=== PATIENT | male | born 1940 | race Caucasian/White ===

== ENCOUNTER → 2020-07-09 11:37 | Outpatient (BNVA) | payer MEDICARE, SELFPAY | PROVIDERS: Family Provider Family Medicine; PCP Family Medicine; Visit Provider Family Medicine | DX: E78.00 Pure hypercholesterolemia, unspecified (principal); I10 Essential (primary) hypertension; M54.5 Low back pain; G89.29 Other chronic pain; K21.9 Gastro-esophageal reflux disease without esophagitis; Z68.30 Body mass index [BMI] 30.0-30.9, adult; F17.211 Nicotine dependence, cigarettes, in remission | CPT/HCPCS: 80053; 80061; 85025 ==

== ENCOUNTER 2021-04-09 21:25 | Observation (INO) | payer MEDICARE, MEDICAID, SELFPAY ==
[2021-04-09 21:41] VITALS: BP 130/88; PULSE 72; RESP 32; TEMP 37.4; O2SAT 93; BMI 28.8
--- NOTE | 2021-04-09 21:49 | XRR_ITS ---
PROCEDURE INFORMATION: Exam: XR Chest Exam date and time: 04/09/2021 9:52 PM Age: 80 years old Clinical indication: Shortness of breath; Additional info: Reduced breath sounds TECHNIQUE: Imaging protocol: XR of the chest. Views: 1 view. COMPARISON: No relevant prior studies available. FINDINGS: Lungs: Bibasilar atelectasis versus minimal infiltrate. Pleural spaces: Unremarkable. No pleural effusion. No pneumothorax. Heart/Mediastinum: Cardiomegaly. Bones/joints: Unremarkable. XR/XR chest 1V portable [id number] IMPRESSION: 1. Cardiomegaly. 2. Bibasilar atelectasis versus minimal infiltrate.
--- NOTE | 2021-04-09 21:51 | ECG_ITS ---
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1940 Requested By: Narayan Miner Order Number: [id number] Diaz MD: JULITO HARRIS Measurements Intervals [place] Rate: 70 P: 9 AK: 171 QRS: -46 QRSD: 104 T: 31 QT: 387 QTc: 418 Interpretive Statements SINUS RHYTHM WITH OCCASIONAL ECTOPIC PREMATURE COMPLEXES PATTERN CONSISTENT WITH PULMONARY DISEASE LEFT ANTERIOR FASCICULAR BLOCK [QRS AXIS <= -45, QR IN I, RS IN II] No previous ECG available for comparison Electronically Signed On 04-11-2021 20:22:55 CDT by JULITO HARRIS [id number]
--- NOTE | 2021-04-09 21:52 | W.ED.AMS ---
HPI - Altered Mental Status General: Chief Complaint: Altered Mental Status Stated Complaint: CONFUSED Time Seen by Provider: 04/09/21 21:45 History of Present Illness: HPI narrative: The patient is an 80-year-old male with past medical history dementia and hypertension who comes to the ER brought by family who said he is confused. He is alert to himself and knows what day of the week it is however he does not recall who the president is. He was also recently diagnosed with tremors per the nurse. The patient denies any complaints in the ED but is satting 92% on room air. MD complaint: confusion Severity: moderate Consistency of symptoms: Waxing and Waning Associated symptoms: Deny depression Review of Systems General: Reports: 10 or more systems reviewed and unremarkable except in HPI and below Const: Denies: fatigue Eyes: Denies: change in vision, blurry vision or eye redness ENMT: Denies: throat pain, swelling of lips/tongue, ear or mastoid pain or nasal congestion Card: Denies: chest pain, palpitations, irregular heart rhythm, edema, dyspnea on exertion or orthopnea Resp: Denies: dyspnea, productive cough or non-productive cough GI: Denies: abdominal pain, diarrhea or GI cramping : Denies: flank pain, urinary frequency or urinary urgency Musc: Denies: neck pain, back pain, extremity pain, joint pain, joint redness, limited range of motion or muscle weakness Skin/Breast: Denies: rash, pruritus, erythema, skin pain or skin tenderness Neuro: Denies: headache(s), numbness in extremities, weakness in extremities, sensory changes, difficulty walking, dizziness, confusion or Slurred speech present Psych: Denies: anxiety or depression Endo: Denies: polyuria All/Imm: Denies: urticaria, throat swelling or tongue swelling PFSH ED PFSH: Medical History (Updated 04/10/21 @ 00:51 by Narayan Miner MD) Anxiety Arthritis Back pain stable. Cataract Dementia GERD (gastroesophageal reflux disease) History of hemorrhoids History of kidney stones Hypercholesteremia Hypertension Surgical History (Updated 04/10/21 @ 00:17 by Rei Santoyo MD) History of back surgery History of cholecystectomy History of knee surgery Family History (Updated 04/10/21 @ 00:17 by Rei Santoyo MD) Father Cancer Pancreatic cancer Social History (Updated 04/10/21 @ 00:17 by Rei Santoyo MD) Smoking and tobacco status: former smoker Alcohol intake: never Substance/Drug Use: never Housing: House Physical Exam Const: COMMON NORMALS: no acute distress, average body habitus, patient oriented x3, no limitations, healthy appearing, alert and well nourished GENERAL APPEARANCE: cooperative, comfortable, well kempt and well developed ORIENTATION/CONSCIOUSNESS: Yes awake, Yes oriented to person, Yes oriented to place and Yes oriented to time HENMT: COMMON NORMALS: normocephalic, external ears normal and Normal external nose present HEAD & SCALP: normal to inspection and normocephalic NOSE: Normal external nose present EXTERNAL EAR: Yes external ears normal MOUTH: Normal oral and palatal mucosa present THROAT: posterior oropharynx normal Eye: COMMON NORMALS: Equal, round and reactive pupils present and EOMs intact bilaterally GENERAL EYE: appearance normal, both eyes and all related structures PUPIL: Yes Equal, round and reactive pupils present Neck/C-Spine: COMMON NORMALS: full ROM, no lymphadenopathy, no meningeal signs and no JVD GENERAL: Yes normal visual inspection Lymph: LYMPHATIC: no lymphadenopathy noted Chest: COMMONS NORMALS: normal inspection of the chest and normal palpation of entire chest wall Resp: COMMON NORMALS: normal respiratory effort, No retractions, No use of accessory muscles, clear to auscultation bilaterally and percussion normal EFFORT & INSPECTION: Yes able to speak in complete sentences AUSCULTATION: clear to auscultation bilaterally PERCUSSION: percussion normal Cardio: COMMON NORMALS: no JVD, regular rate, regular rhythm, S1 normal heart sound present, S2 normal heart sound present and Peripheral pulses 2+ throughout RATE: regular rate RHYTHM: regular rhythm HEART SOUNDS: S1 normal heart sound present and S2 normal heart sound present PERIPHERAL PULSES: Peripheral pulses 2+ throughout GI: COMMON NORMALS: Normal to inspection, nondistended, normoactive bowel sounds present, Soft to palpation, non-tender and no masses INSPECTION: Yes normal to inspection PALPATION: Yes Soft to palpation : COMMON NORMALS: Yes no CVA tenderness BLADDER/KIDNEY EXAM: Yes no CVA tenderness Back/Pelvis: COMMON NORMALS: no CVA tenderness, thoracic and lumbar spine normal to inspection, no thoracic nor lumbar tenderness and thoraco-lumbar ROM normal Extremity: COMMON NORMALS: normal to inspection, full ROM, capillary refill normal, no joint enlargement and no pedal edema GENERAL: Yes normal exam except as noted Neuro: COMMON NORMALS: patient oriented x3, CN's II-XII intact bilaterally, moves all extremities, no focal motor deficits, no sensory deficits noted and gait normal SENSORIUM/ORIENTATION: Yes alert, Yes oriented to person, Yes oriented to place and Yes oriented to time MENINGEAL SIGNS: Yes no meningeal signs Psych: COMMON NORMALS: mental status grossly normal, Normal thought process present, cooperative, normal affect and speech normal APPEARANCE: Yes well kempt ATTITUDE: Yes calm SPEECH: Yes normal speech THOUGHT PROCESS: Normal thought process present Skin: COMMON NORMALS: no rashes or lesions noted GENERAL SKIN EXAM: no rashes or lesions noted Course Vital Signs: Vital signs: Vital Signs Temperature 99.4 F 04/09/21 21:41 Pulse Rate 69 04/09/21 23:00 Respiratory Rate 30 H 04/09/21 23:00 Blood Pressure 120/75 04/09/21 23:00 Pulse Oximetry 94 04/09/21 23:00 MDM - Altered Mental Status MDM Narrative: Medical decision making narrative: Patient is an 80-year-old male with dementia who comes to the ER brought by his daughter who says he is much more confused than usual. The patient knows his name, where he is, and his birthday. He does not know who the president is. He is answering most questions inappropriately. He has a slightly elevated white count 11.5. Slightly elevated temperature. Increased respiratory rate as well as reduced breath sounds. Chest CT also shows likely pneumonia. He was started on azithromycin and admitted to Dr. Santoyo. Lab Data: Labs: Lab Results 04/09/21 04/09/21 04/09/21 Range/Units 21:47 21:47 21:47 WBC 11.5 H (4.0-10.0) 10^3/ uL RBC 4.53 (4.1-5.3) 10^6/u L Hgb 13.4 (11.7-16.6) g/dL Hct 41.2 L (42.0-52.0) % MCV 90.9 (80-94) fL MCH 29.6 (28.0-34.0) pg MCHC 32.5 (30.0-36.0) g/dL RDW 13.4 (12.1-15.1) % Plt Count 378 (130-400) 10^3/c mm MPV 9.1 (7.4-10.4) fL Neut % (Auto) 67.7 % Lymph % (Auto) 18.6 % [place] % (Auto) 11.6 % Eos % (Auto) 1.3 % Baso % (Auto) 0.5 % Neut # (Auto) 7.77 H (1.8-7.7) 10^3/u L Lymph # (Auto) 2.1 (0.8-4.8) 10^3/u L [place] # (Auto) 1.3 H (0.2-0.9) 10^3/u L Eos # (Auto) 0.2 (0.0-0.8) 10^3/u L Baso # (Auto) 0.1 (0.0-0.1) 10^3/u L Nucleated RBC % (a uto) 0 % Nucleated RBCs # 0.0 /100WBC Sodium 135 L (136-145) mmol/L Potassium 4.4 (3.5-5.1) mmol/L Chloride 100 (98-107) mmol/L Carbon Dioxide 24 (22-29) mmol/L Anion Gap 15.4 (5-19) BUN 12 (8-23) mg/dL Creatinine 0.7 (0.7-1.2) mg/dL GFR Calculation Not Reportable Glucose 99 (65-115) mg/dL Calculated Osmolal ity 280 L (285-295) mOsm/k g Lactic Acid (0.5-2.2) mmol/L Calcium 8.8 (8.5-10.5) mg/dL Total Bilirubin 0.2 (0.15-1.2) mg/dL AST 17 (0-40) U/L ALT 21 (0-41) U/L Alkaline Phosphata se 92 (40-130) IU/L Troponin T Baselin e 44 H (0-15) ng/L Troponin T 120 Min flex (0-15) ng/L Delta Troponin T (0-10) ABS# NT-Pro-B Natriuret Pep (0-450) pg/mL Total Protein 6.7 (6.6-8.7) g/dL Albumin 4.2 (3.5-5.2) g/dL Globulin 2.5 (1.3-4.6) g/dL Procalcitonin 0.05 (0-0.5) ng/mL Urine Color (Yellow) Urine Appearance (CLEAR) Urine pH (5-7) Ur Specific Gravit y (1.005-1.030) Urine Protein (Negative) Urine Glucose (UA) (Normal) Urine Ketones (Negative) Urine Blood (Negative) Urine Nitrate (Negative) Urine Bilirubin (Negative) Urine Urobilinogen (Negative) mg/dL Ur Leukocyte Haleigh ase (Negative) Urine Opiates Scre en (Negative) ng/mL Ur Barbiturates Sc reen (Negative) ng/mL Ur Phencyclidine S crn (Negative) ng/mL Ur Amphetamines Sc reen (Negative) ng/mL U Benzodiazepines Scrn (Negative) ng/mL Urine Cocaine Scre en (Negative) ng/mL U Marijuana (THC) Screen (Negative) ng/mL 04/09/21 04/09/21 04/09/21 Range/Units 22:10 22:40 23:37 WBC (4.0-10.0) 10^3/ uL RBC (4.1-5.3) 10^6/u L Hgb (11.7-16.6) g/dL Hct (42.0-52.0) % MCV (80-94) fL MCH (28.0-34.0) pg MCHC (30.0-36.0) g/dL RDW (12.1-15.1) % Plt Count (130-400) 10^3/c mm MPV (7.4-10.4) fL Neut % (Auto) % Lymph % (Auto) % [place] % (Auto) % Eos % (Auto) % Baso % (Auto) % Neut # (Auto) (1.8-7.7) 10^3/u L Lymph # (Auto) (0.8-4.8) 10^3/u L [place] # (Auto) (0.2-0.9) 10^3/u L Eos # (Auto) (0.0-0.8) 10^3/u L Baso # (Auto) (0.0-0.1) 10^3/u L Nucleated RBC % (a uto) % Nucleated RBCs # /100WBC Sodium (136-145) mmol/L Potassium (3.5-5.1) mmol/L Chloride (98-107) mmol/L Carbon Dioxide (22-29) mmol/L Anion Gap (5-19) BUN (8-23) mg/dL Creatinine (0.7-1.2) mg/dL GFR Calculation Glucose (65-115) mg/dL Calculated Osmolal ity (285-295) mOsm/k g Lactic Acid 1.3 (0.5-2.2) mmol/L Calcium (8.5-10.5) mg/dL Total Bilirubin (0.15-1.2) mg/dL AST (0-40) U/L ALT (0-41) U/L Alkaline Phosphata se (40-130) IU/L Troponin T Baselin e (0-15) ng/L Troponin T 120 Min flex 36.31 H (0-15) ng/L Delta Troponin T -7.69 L (0-10) ABS# NT-Pro-B Natriuret Pep (0-450) pg/mL Total Protein (6.6-8.7) g/dL Albumin (3.5-5.2) g/dL Globulin (1.3-4.6) g/dL Procalcitonin (0-0.5) ng/mL Urine Color Yellow (Yellow) Urine Appearance Clear (CLEAR) Urine pH 5 (5-7) Ur Specific Gravit y 1.010 (1.005-1.030) Urine Protein Neg (Negative) Urine Glucose (UA) Norm (Normal) Urine Ketones Negative (Negative) Urine Blood Neg (Negative) Urine Nitrate Negative (Negative) Urine Bilirubin Neg (Negative) Urine Urobilinogen Norm (Negative) mg/dL Ur Leukocyte Haleigh ase Negative (Negative) Urine Opiates Scre en (Negative) ng/mL Ur Barbiturates Sc reen (Negative) ng/mL Ur Phencyclidine S crn (Negative) ng/mL Ur Amphetamines Sc reen (Negative) ng/mL U Benzodiazepines Scrn (Negative) ng/mL Urine Cocaine Scre en (Negative) ng/mL U Marijuana (THC) Screen (Negative) ng/mL 04/09/21 04/10/21 Range/Units 23:37 00:01 WBC (4.0-10.0) 10^3/ uL RBC (4.1-5.3) 10^6/u L Hgb (11.7-16.6) g/dL Hct (42.0-52.0) % MCV (80-94) fL MCH (28.0-34.0) pg MCHC (30.0-36.0) g/dL RDW (12.1-15.1) % Plt Count (130-400) 10^3/c mm MPV (7.4-10.4) fL Neut % (Auto) % Lymph % (Auto) % [place] % (Auto) % Eos % (Auto) % Baso % (Auto) % Neut # (Auto) (1.8-7.7) 10^3/u L Lymph # (Auto) (0.8-4.8) 10^3/u L [place] # (Auto) (0.2-0.9) 10^3/u L Eos # (Auto) (0.0-0.8) 10^3/u L Baso # (Auto) (0.0-0.1) 10^3/u L Nucleated RBC % (a uto) % Nucleated RBCs # /100WBC Sodium (136-145) mmol/L Potassium (3.5-5.1) mmol/L Chloride (98-107) mmol/L Carbon Dioxide (22-29) mmol/L Anion Gap (5-19) BUN (8-23) mg/dL Creatinine (0.7-1.2) mg/dL GFR Calculation Glucose (65-115) mg/dL Calculated Osmolal ity (285-295) mOsm/k g Lactic Acid (0.5-2.2) mmol/L Calcium (8.5-10.5) mg/dL Total Bilirubin (0.15-1.2) mg/dL AST (0-40) U/L ALT (0-41) U/L Alkaline Phosphata se (40-130) IU/L Troponin T Baselin e (0-15) ng/L Troponin T 120 Min flex (0-15) ng/L Delta Troponin T (0-10) ABS# NT-Pro-B Natriuret Pep 166 (0-450) pg/mL Total Protein (6.6-8.7) g/dL Albumin (3.5-5.2) g/dL Globulin (1.3-4.6) g/dL Procalcitonin (0-0.5) ng/mL Urine Color (Yellow) Urine Appearance (CLEAR) Urine pH (5-7) Ur Specific Gravit y (1.005-1.030) Urine Protein (Negative) Urine Glucose (UA) (Normal) Urine Ketones (Negative) Urine Blood (Negative) Urine Nitrate (Negative) Urine Bilirubin (Negative) Urine Urobilinogen (Negative) mg/dL Ur Leukocyte Haleigh ase (Negative) Urine Opiates Scre en Negative (Negative) ng/mL Ur Barbiturates Sc reen Negative (Negative) ng/mL Ur Phencyclidine S crn Negative (Negative) ng/mL Ur Amphetamines Sc reen Negative (Negative) ng/mL U Benzodiazepines Scrn Negative (Negative) ng/mL Urine Cocaine Scre en Negative (Negative) ng/mL U Marijuana (THC) Screen Negative (Negative) ng/mL Discharge Plan Discharge Clinical Impression: Altered mental status, Dementia, Pneumonia Condition: Stable Prescriptions: No Action hydrocodone-acetaminophen 10-325 mg tablet 1 tab PO Q6H PRNRF: 0 nitroglycerin 0.4 mg tablet, sublingual 0.4 mg SUBLINGUAL Q5M PRNRF: 0 omeprazole 20 mg capsule,delayed release(DR/EC) 20 mg PO DAILY RF: 0 polyethylene glycol Powder miscellaneous RF: 0 tolterodine 4 mg capsule,extended release 24hr 4 mg PO DAILY 90 Days Qty: 90 RF: 3 simvastatin 20 mg tablet 20 mg PO DAILY Qty: 90 RF: 1 lisinopril 20 mg tablet 20 mg PO DAILY MDD . Qty: 90 RF: 1 donepezil 10 mg tablet 10 mg PO DAILY 30 Days Qty: 90 RF: 1 Referrals: MISBAH ASHER MD [Primary Care Provider] - Coding Level of Care Code ED Store Clerk Cashier for Chg Fwd Exam Comprehensive
[2021-04-09 21:59] LABS: Basophils # 0.1 10^3/uL (0.0-0.1); Basophils % 0.5 %; Eosinophils # 0.2 10^3/uL (0.0-0.8); Eosinophils % 1.3 %; Hematocrit 41.2 % (42.0-52.0); Hemoglobin 13.4 g/dL (11.7-16.6); Lymphocytes # 2.1 10^3/uL (0.8-4.8); Lymphocytes % 18.6 %; Mean Corpuscular HGB Conc 32.5 g/dL (30.0-36.0); Mean Corpuscular Hemoglobin 29.6 pg (28.0-34.0); Mean Corpuscular Volume 90.9 fL (80-94); Mean Platelet Volume 9.1 fL (7.4-10.4); Monocytes # 1.3 10^3/uL (0.2-0.9); Monocytes % 11.6 %; Neutrophils # 7.77 10^3/uL (1.8-7.7); Neutrophils % 67.7 %; Nucleated Red Blood Cells % 0 %; Platelet Count 378 10^3/cmm (130-400); Red Blood Count 4.53 10^6/uL (4.1-5.3); Red Cell Distribution Width 13.4 % (12.1-15.1); White Blood Count 11.5 10^3/uL (4.0-10.0)
[2021-04-09 22:00] VITALS: BP 135/85; PULSE 71; RESP 32; O2SAT 95
--- NOTE | 2021-04-09 22:00 | CTR_ITS ---
PROCEDURE INFORMATION: Exam: CT Head Without Contrast Exam date and time: 04/09/2021 10:08 PM Age: 80 years old Clinical indication: Altered mental status/memory loss TECHNIQUE: Imaging protocol: Computed tomography of the head without contrast. Radiation optimization: All CT scans at this facility use at least one of these dose optimization techniques: automated exposure control; mA and/or kV adjustment per patient size (includes targeted exams where dose is matched to clinical indication); or iterative reconstruction. COMPARISON: No relevant prior studies available. RADIATION DOSE METRICS: Total DLP (mGy-cm): 735.12 FINDINGS: Brain: Moderate diffuse white matter disease likely reflecting chronic microvascular ischemic changes. Bilateral benign basal ganglia calcifications. Cerebral ventricles: No ventriculomegaly. Paranasal sinuses: Paranasal sinus opacifications. Mastoid air cells: Visualized mastoid air cells are well aerated. Bones/joints: Unremarkable. No acute fracture. Soft tissues: Unremarkable. CT/CT head wo con* [id number] IMPRESSION: Negative for intracranial hemorrhage or mass effect. Radiation Dose CTDIVOL = (mGy): DLP = 735.12 (mGy-cm)
[2021-04-09 22:18] LABS: Troponin(5th) Baseline 44 ng/L (0-15)
[2021-04-09 22:21] LABS: Alanine Aminotransferase 21 U/L (0-41); Albumin Level 4.2 g/dL (3.5-5.2); Alkaline Phosphatase 92 IU/L (40-130); Anion Gap 15.4 (5-19); Aspartate Amino Transferase 17 U/L (0-40); Blood Urea Nitrogen 12 mg/dL (8-23); Calcium 8.8 mg/dL (8.5-10.5); Carbon Dioxide 24 mmol/L (22-29); Chloride 100 mmol/L (98-107); Creatinine Clr Calc Pharmacy 76.0376; Globulin 2.5 g/dL (1.3-4.6); Glucose 99 mg/dL (65-115); Osmolality Calculated 280 mOsm/kg (285-295); Potassium 4.4 mmol/L (3.5-5.1); Sodium 135 mmol/L (136-145); Total Bilirubin 0.2 mg/dL (0.15-1.2); Total Protein 6.7 g/dL (6.6-8.7)
[2021-04-09 22:27] LABS: Procalcitonin 0.05 ng/mL (0-0.5)
[2021-04-09 22:36] LABS: Lactic Sepsis W/Reflex 1.3 mmol/L (0.5-2.2)
[2021-04-09 23:00] VITALS: BP 120/75; PULSE 69; RESP 30; O2SAT 94
[2021-04-09 23:16] LABS: Add Urine Microscopic? NO; Charge for UA Resulting for Rev
[2021-04-09 23:25] LABS: Blood Urine Neg (Negative); Glucose Urine UA Norm (Normal); Ketones Urine Negative (Negative); Nitrate Urine Negative (Negative); Protein Urine Neg (Negative); Urine Appearance Clear (CLEAR); Urine Color Yellow (Yellow); pH Urine 5 (5-7)
[2021-04-09 23:26] LABS: Bilirubin Urine Neg (Negative); Leukocyte Esterase Urine Negative (Negative); Urobilinogen Urine Norm (Negative)
[2021-04-09] MEDS: sodium chloride 0.9% 1,000 ML 999 ML IV (23:30)
--- NOTE | 2021-04-09 23:51 | ECG_ITS ---
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
--- NOTE | 2021-04-09 23:56 | CTR_ITS ---
PROCEDURE INFORMATION: Exam: CTA Chest With Contrast Exam date and time: 04/09/2021 11:58 PM Age: 80 years old Clinical indication: Shortness of breath; Additional info: Dyspnea, elevated trop TECHNIQUE: Imaging protocol: Computed tomographic angiography of the chest with contrast. 3D rendering (Not supervised by radiologist): MIP and/or 3D reconstructed images were created by the technologist. Radiation optimization: All CT scans at this facility use at least one of these dose optimization techniques: automated exposure control; mA and/or kV adjustment per patient size (includes targeted exams where dose is matched to clinical indication); or iterative reconstruction. Contrast material: OMNI 350; Contrast volume: 81 ml; Contrast route: INTRAVENOUS (IV); COMPARISON: CR (CHEST, ) 04/09/2021 9:51 PM RADIATION DOSE METRICS: Total DLP (mGy-cm): 904.27 FINDINGS: Pulmonary arteries: Normal. No pulmonary emboli. Aorta: Unremarkable. No aortic aneurysm. No aortic dissection. Lungs: Emphysematous changes. Patchy bilateral atelectasis versus minimal infiltrate greatest in the right middle lobe. Pleural spaces: Unremarkable. No pneumothorax. No pleural effusion. Heart: Coronary artery atherosclerotic calcifications. Mediastinal space: Large hiatal hernia. Lymph nodes: Scattered enlarged mediastinal lymph nodes measuring up to 17 mm, nonspecific. Kidneys and ureters: Left kidney cyst, negative for follow-up advised. Bones/joints: Unremarkable. No acute fracture. Soft tissues: Left thyroid 15 mm probable cyst, negative for follow-up advised. CT/CT angio chest PE protcl [id number] IMPRESSION: 1. Negative for pulmonary embolus 2. Scattered enlarged mediastinal lymph nodes measuring up to 17 mm, nonspecific. 3. Large hiatal hernia. 4. Left kidney cyst, negative for follow-up advised. 5. Coronary artery atherosclerotic calcifications. 6. Cholecystectomy. 7. Patchy bilateral atelectasis versus minimal infiltrate greatest in the right middle lobe. COMMENTS: Consistent with the [employer]'s Incidental Findings Committee white paper (J Am Keyur Radiol 2018): Any incidental renal lesion less than 1 cm or classified as too small to characterize, or any incidental cystic renal lesion characterized as simple-appearing, is likely benign. No follow-up imaging is recommended for these lesions per consensus recommendations based on imaging criteria. Radiation Dose CTDIVOL = (mGy): DLP = 904.27 (mGy-cm)
[2021-04-10] VITALS (154 sets, daily range): BP systolic 102–150; BP diastolic 65–84; PULSE 20–91; RESP 7–112; TEMP 36.3–37.2; O2SAT 89–99
[2021-04-10 00:04] LABS: Troponin 5 2HR 36.31 ng/L (0-15)
[2021-04-10 00:05] LABS: Troponin 5 2HR Delta -7.69 ABS# (0-10)
[2021-04-10 00:14] LABS: NT Pro B Type Natriuretic Pept 166 pg/mL (0-450)
--- NOTE | 2021-04-10 00:16 | P.HP_ITS ---
Providers/Chief Complaint Primary Care Provider: Israel Waters MD Chief Complaint: CONFUSED History of Present Illness Vlad Talley is a 80 year old male with history of dementia, presented today with chief complaint of worsening confusion. Daughter is at the bedside who is endorsing that at baseline he is able to carry a decent conversation, able to ambulate on his own. Today when she checked on him he was very confused he was not making sense at all, however no typical strokelike symptoms were noticed, he was leaning forward and had no energy at all. He looked very drowsy and fatigued. Daughter is concerned probably his son has given him too many opioids. Patient is denying chest pain, shortness of breath, fever, productive cough no recent sinusitis symptoms. Diagnosis in the ER revealed mild leukocytosis, patient was only oriented to himself, CT chest revealed right middle lobe pneumonia drug screen negative No strokelike symptoms Review of Systems Const: Denies: fever(s) Eyes: Denies: change in vision ENMT: Denies: throat pain Card: Denies: chest pain Resp: Denies: dyspnea GI: Denies: abdominal pain : Denies: flank pain Musc: Denies: neck pain Skin/Breast: Denies: rash Neuro: Denies: headache(s) Psych: Denies: anxiety Endo: Denies: polyuria Vito/Lymph: Denies: easy bruising All/Imm: Denies: urticaria Medications/Allergies Home Medications Medication Instructions Recorded Confirmed Last Taken Type hydrocodone 10 mg-acetaminophen 1 tab PO Q6H PRN 07/09/20 03/25/21 Unknown History 325 mg tablet nitroglycerin 0.4 mg sublingual 0.4 mg SUBLINGUAL Q5M PRN 07/09/20 03/25/21 Unknown History tablet omeprazole 20 mg capsule,delayed 20 mg PO DAILY 07/09/20 03/25/21 Unknown History release polyethylene glycol each MISCELLANEOUS 07/09/20 03/25/21 Unknown History tolterodine 4 mg capsule,extended 4 mg PO DAILY 90 Days #90 cap 07/30/20 03/25/21 Unknown Rx release 24 hr simvastatin 20 mg tablet 20 mg PO DAILY #90 tab 12/29/20 03/25/21 Unknown Rx lisinopril 20 mg tablet 20 mg PO DAILY #90 tab MDD . 01/30/21 03/25/21 Unknown Rx donepezil 10 mg tablet 10 mg PO DAILY 30 Days #90 tab 03/24/21 03/25/21 Unknown Rx Allergies Allergy/AdvReac Type Severity Reaction Status Date / Time acetaminophen Allergy na Verified 03/25/21 08:18 [From [facility]] aspirin [From [facility]] Allergy na Verified 03/25/21 08:18 chlorpheniramine Allergy na Verified 03/25/21 08:18 [From [facility]] citric acid Allergy na Verified 03/25/21 08:18 [From [facility]] phenylephrine Allergy na Verified 03/25/21 08:18 [From [facility]] sodium bicarbonate Allergy na Verified 03/25/21 08:18 [From [facility]] PFSH Acute PFSH: Medical History Anxiety Arthritis Back pain stable. Cataract Dementia GERD (gastroesophageal reflux disease) History of hemorrhoids History of kidney stones Hypercholesteremia Hypertension Surgical History History of back surgery History of cholecystectomy History of knee surgery Family History Father Cancer Pancreatic cancer Social History Smoking and tobacco status: former smoker Alcohol intake: never Substance/Drug Use: never Housing: House Vitals/I&O/Wt Last Vital Signs Temp 99.4 F 04/09/21 21:41 Pulse 69 04/09/21 23:00 Resp 30 H 04/09/21 23:00 BP 120/75 04/09/21 23:00 Pulse Ox 94 04/09/21 23:00 Weight last 48 hrs Weight 86.183 kg Physical Exam Narrative: EXAM NARRATIVE: Pleasant and cooperative elderly male who is only oriented to himself, daughter at the bedside No strokelike symptoms no signs of meningitis S1, S2 sinus rhythm no signs of heart failure Abdomen looks distended, ventral hernia no signs of peritonitis guarding rigidity Low symmetry no edema gangrene ulcer, Appropriate mood and affect EOMI, PERRLA No neurological deficits No joint swelling No acute respite distress no audible stridor or wheezing Data : 04/09/21 21:47 04/09/21 21:47 Micro: Microbiology 04/09/21 23:37 Blood Culture - Preliminary Blood SPECIMEN COLLECTED 04/09/21 22:10 Blood Culture - Preliminary Blood SPECIMEN COLLECTED A&P Assessment and plan (1) Delirium: Status: Acute (2) Pneumonia: Status: Acute Additional A&P Information Acute delirium with underlying right middle lobe pneumonia Start Levaquin p.o. regimen, I would avoid IV because of his delirious state DuoNeb every 4 as needed At the time of my evaluation his respiratory rate was within normal range, he has mild leukocytosis, no sepsis present on admission, Request urine antigen His delirium is most likely secondary to pneumonia with underlying dementia, check TSH and B12 along procalcitonin Hold opioids for now Drug screen negative CTA rule out PE Full code Cardiac diet DVT prophylaxis Lovenox Attestations Medical Necessity Statement*: Anticipating discharge within 48 hours for delirium secondary to pneumonia Time Spent in Patient Care: 30mins Coding Level of Care Code Acute Entry Level Assistant Manager for Vasyl Rivers Diagnoses Delirium R41.0 Pneumonia J18.9
[2021-04-10 00:29] LABS: Amphetamines Screen Urine Negative (Negative); Barbiturates Screen Urine Negative (Negative); Benzodiazepines Screen Urine Negative (Negative); Cocaine Screen Urine Negative (Negative); Opiate Screen Urine Negative (Negative); PCP Screen Urine Negative (Negative); THC Screen Urine Negative (Negative)
[2021-04-10] MEDS: iohexol 350 mg/mL 100 mL Btl IV (00:30)
[2021-04-10] MEDS: cefTRIAXone 1,000 MG in sodium chloride 0.9% (plus) 50 ML 100 MG IV (00:41)
[2021-04-10 01:04] LABS: Thyroid Stimulating Hormone 0.73 uIU/mL (0.27-4.20); Vitamin B12 477 pg/mL (232-1245)
[2021-04-10] MEDS: diphenhydrAMINE 25 mg Capsule PO (03:58)
[2021-04-10] MEDS: enoxaparin 40 mg/0.4 mL Syringe SUBCUT (06:59)
--- NOTE | 2021-04-10 09:13 | PC.PHAR ---
pt unable to verify medications-called pts daughter benoit [phone] left message-medications entered are meds that pull up on ext med history
[2021-04-10] MEDS: donepezil 5 MG Tablet 10 MG PO (10:29)
[2021-04-10] MEDS: lisinopril 20 mg Tablet PO (10:29)
[2021-04-10] MEDS: levoFLOXacin 750 mg Tablet PO (10:29)
--- NOTE | 2021-04-10 11:00 | PM.PN ---
Subjective Subjective: Interval history: overnight labs and H&P reviwed, no acute interim events Vitals/I&O/Wt Last Vital Signs Temp 98.3 F 04/11/21 00:00 Pulse 70 04/11/21 00:00 Resp 22 H 04/11/21 00:00 BP 146/76 04/11/21 00:00 Pulse Ox 96 04/11/21 00:00 04/10/21 04/10/21 04/11/21 14:59 22:59 06:59 Intake Total 960 / 960 480 / 1440 Output Total 1150 / 1150 700 / 1850 Balance -190 / -190 -220 / -410 Weight last 48 hrs Weight 93.803 kg Weight 86.183 kg Physical Exam Narrative: EXAM NARRATIVE: GEN: Awake, alert and orientedx 2-3, no acute distress CVS: S1S2 N RS: CTA B/L anteriorly Abd: Soft, nt/nd , 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 Data : 04/09/21 21:47 04/09/21 21:47 Micro: Microbiology 04/09/21 23:37 Blood Culture - Preliminary Blood NEGATIVE TO DATE 04/09/21 22:10 Blood Culture - Preliminary Blood NEGATIVE TO DATE 04/10/21 15:45 Legionella Urinary Antigen - Final Urine,Voided A&P Assessment and plan (1) Delirium: Status: Acute (2) Pneumonia: Status: Acute Additional A&P Information Acute delirium with underlying right middle lobe pneumonia, delirium now resolved Continue ceftriaxone and Levaquin DuoNeb every 4 as needed pending urine antigen His delirium is most likely secondary to pneumonia with underlying dementia, TSH and B12 within range Full code Cardiac diet DVT prophylaxis Lovenox Attestations Medical Necessity Statement*: ongoing need for iv abx, close monitoring of respiratory and neuro systems Coding Level of Care Code Acute Personal Coach for g Fwd Diagnoses Delirium R41.0 Pneumonia J18.9
--- NOTE | 2021-04-10 13:39 | PC.NURSE ---
pt. getting out of bed w/o using call light, when encouraged to use call light, stated i am use to doing things for myself explained with all the lines connected to him he was at high risk for fall and reinforced call light location and its use..
--- NOTE | 2021-04-10 17:20 | ECG_ITS ---
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1940 Requested By: Marii Palmer Order Number: [id number] Reading MD: JULITO HRARIS Measurements Intervals [place] Rate: 62 P: -16 MN: 176 QRS: -37 QRSD: 113 T: 5 QT: 406 QTc: 414 Interpretive Statements SINUS RHYTHM MARKED LEFT AXIS DEVIATION [QRS AXIS < -30] PATTERN CONSISTENT WITH PULMONARY DISEASE MODERATE INTRAVENTRICULAR CONDUCTION DELAY [110+ ms QRS DURATION] Compared to ECG 04/09/2021 23:29:39 Left-axis deviation now present Intraventricular conduction delay now present Left anterior fascicular block no longer present Electronically Signed On 04-11-2021 20:21:22 CDT by JULITO HARRIS [id number]
--- NOTE | 2021-04-10 20:35 | PC.NURSE ---
TRANSFER Report called to KEITH Vidal on medical floor. Patient transferred [facility] via wheelchair by RN. Call light in reach. Belongings taken with patient to room.
--- NOTE | 2021-04-10 23:57 | PC.NURSE ---
Patient refuses to wear telemetry. He says he cant sleep with it on and is leaving regardless tomorrow, that he has an appt in [place]. Hospitalist Notified and aware
[2021-04-11] VITALS: BP 146/76; PULSE 70; RESP 22; TEMP 36.8; O2SAT 96
[2021-04-11 04:00] VITALS: BP 116/73; PULSE 73; RESP 20; TEMP 36.4; O2SAT 94
[2021-04-11] MEDS: enoxaparin 40 mg/0.4 mL Syringe SUBCUT (07:29)
[2021-04-11 07:47] LABS: Basophils # 0.1 10^3/uL (0.0-0.1); Basophils % 0.9 %; Eosinophils # 0.3 10^3/uL (0.0-0.8); Eosinophils % 3.7 %; Hematocrit 46.2 % (42.0-52.0); Hemoglobin 14.9 g/dL (11.7-16.6); Lymphocytes # 3.4 10^3/uL (0.8-4.8); Lymphocytes % 36.5 %; Mean Corpuscular HGB Conc 32.3 g/dL (30.0-36.0); Mean Corpuscular Hemoglobin 29.4 pg (28.0-34.0); Mean Corpuscular Volume 91.1 fL (80-94); Monocytes # 1.1 10^3/uL (0.2-0.9); Monocytes % 11.7 %; Neutrophils # 4.34 10^3/uL (1.8-7.7); Nucleated Red Blood Cells % 0 %; Platelet Count 445 10^3/cmm (130-400); Red Blood Count 5.07 10^6/uL (4.1-5.3); Red Cell Distribution Width 13.2 % (12.1-15.1); White Blood Count 9.2 10^3/uL (4.0-10.0)
[2021-04-11 08:00] VITALS: BP 136/51; PULSE 95; RESP 17; TEMP 36.8; O2SAT 97
[2021-04-11] MEDS: levoFLOXacin 750 mg Tablet PO (08:15)
[2021-04-11] MEDS: donepezil 5 MG Tablet 10 MG PO (08:15)
[2021-04-11] MEDS: lisinopril 20 mg Tablet PO (08:15)
[2021-04-11 08:19] LABS: Blood Urea Nitrogen 9 mg/dL (8-23); Carbon Dioxide 28 mmol/L (22-29); Chloride 98 mmol/L (98-107); Glucose 112 mg/dL (65-115); Osmolality Calculated 281 mOsm/kg (285-295); Sodium 136 mmol/L (136-145)
[2021-04-11 12:00] VITALS: BP 176/105; PULSE 92; RESP 17; TEMP 36.6; O2SAT 95
[2021-04-11] MEDS: calcium carbonate 500 mg Chew Tablet PO (12:30)
--- NOTE | 2021-04-11 12:53 | P.DS_ITS ---
Discharge Providers Date of Admission: 04/10/21 04:36 Date of Discharge: April 11, 2021 Attending Provider at Admission: Rei Santoyo MD Attending Provider at Discharge: Marii Palmer MD Primary Care Provider: Misbah Waters MD Diagnoses at Discharge Discharge Diagnosis (1) Delirium: Status: Acute (2) Pneumonia: Status: Acute Reason for Visit Reason for Visit: CONFUSED Hospital Course Hospital Course Vlad Talley is a 80 year old male with history of dementia, presented with chief complaint of worsening confusion. Diagnostics in the ER revealed mild leukocytosis, patient was only oriented to himself, CT chest revealed right middle lobe pneumonia, drug screen negative. Overall impression that of acute delirium as a result of pneumonia. He was treated with Ceftriaxone and Levaquin as inpatient, transitioned to Levofloxacin at time of discharge to complete course. He is feeling much improved. Physical Exam Narrative: EXAM NARRATIVE: GEN: Awake, alert and oriented, no acute distress , sitting in chair dressed, ready for discharge. 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 Discharge Data Data Completed and Pending: Completed Studies During Hospitalization Category Date Time Status CT angio chest PE protcl 10777 Stat Cat Scan 04/09/21 23:[address] head wo con* 7 0450 Urgent Cat Scan 04/09/21 22:00 Completed XR chest 1V bridget ble 10723 Urgent Exams 04/09/21 21:49 Completed Pending at discharge Category Date Time Status Blood Culture Sta t Lab 04/09/21 23:37 Results Sputum Culture an d Gram Stain Yoel mccain Lab 04/10/21 05:40 Uncollected Labs from last 24 hours 04/11/21 04/11/21 06:57 06:57 WBC 9.2 RBC 5.07 Hgb 14.9 Hct 46.2 MCV 91.1 MCH 29.4 MCHC 32.3 RDW 13.2 Plt Count 445 H MPV 9.0 Neut % (Auto) 47.0 Lymph % (Auto) 36.5 Robertson % (Auto) 11.7 Eos % (Auto) 3.7 Baso % (Auto) 0.9 Neut # (Auto) 4.34 Lymph # (Auto) 3.4 Robertson # (Auto) 1.1 H Eos # (Auto) 0.3 Baso # (Auto) 0.1 Nucleated RBC % (a uto) 0 Nucleated RBCs # 0.0 Sodium 136 Potassium 4.0 Chloride 98 Carbon Dioxide 28 Anion Gap 14.0 BUN 9 Creatinine 0.7 GFR Calculation Not Reportable Glucose 112 Calculated Osmolal ity 281 L Calcium 9.0 Vitals: Last Vital Signs Temp 97.8 F 04/11/21 12:00 Pulse 92 04/11/21 12:00 Resp 17 04/11/21 12:00 BP 176/105 04/11/21 12:00 Pulse Ox 95 04/11/21 12:00 Discharge Plan Discharge Patient Disposition: Home Condition: Stable Prescriptions: Continued hydrocodone-acetaminophen 10-325 mg tablet 1 tab PO Q6H PRN (Reason: Pain) RF: 0 nitroglycerin 0.4 mg tablet, sublingual 0.4 mg SUBLINGUAL Q5M PRN (Reason: Chest Pain) RF: 0 omeprazole 20 mg capsule,delayed release(DR/EC) 20 mg PO DAILY RF: 0 tolterodine 4 mg capsule,extended release 24hr 4 mg PO DAILY 90 Days Qty: 90 RF: 3 simvastatin 20 mg tablet 20 mg PO DAILY Qty: 90 RF: 1 lisinopril 20 mg tablet 20 mg PO DAILY MDD . Qty: 90 RF: 1 donepezil 10 mg tablet 10 mg PO DAILY 30 Days Qty: 90 RF: 1 diltiazem HCl 240 mg capsule,extended release 24hr 240 mg PO DAILY RF: 0 Discharge Orders: Discharge Order (Routine); Ordered 04/11/21 Ordered By: Marii Palmer Referrals: MISBAH WATERS MD [Primary Care Provider] - 7-10 days (Please call your primary care provider and schedule an appointment to be seen within 10 days.) Discharge Diet: Usual diet Discharge Activity: Resume usual activity Patient Instructions: Levofloxacin (By mouth), Pneumonia (GEN), Opioid Safety, Pneumonia Stoplight Discharge Attestations Time Spent in Discharge Care*: less than 30 min Quality Metrics Clinical Quality Measures During this hospital stay, did patient experience: None Coding Level of Care Code Acute Chg FW DC note Diagnoses Delirium R41.0 Pneumonia J18.9
== END 2021-04-11 13:12 | disposition home or self-care (01) ==
LOC: ER 04-10 00:51 → ICU 04-10 06:01 → ER IP 04-10 07:58 → ICU 04-10 07:58 → MEDSURG 04-10 20:59
PROVIDERS: Admitting Provider Internal Medicine; Emergency Provider Family Medicine; PCP Internal Medicine; Visit Provider Student in an Organized Health Care Education/Training Program
DX: R41.0 Disorientation, unspecified (principal); J18.9 Pneumonia, unspecified organism; F03.90 Unspecified dementia, unspecified severity, without behavioral disturbance, psychotic disturbance, mood disturbance, and anxiety; Z79.891 Long term (current) use of opiate analgesic; F41.9 Anxiety disorder, unspecified; M19.90 Unspecified osteoarthritis, unspecified site; I10 Essential (primary) hypertension; Z87.891 Personal history of nicotine dependence
CPT/HCPCS: 36415; 70450; 71045; 71275; 80048; 80053; 80306; 81003; 82607; 83605; 83880; 84145; 84443; 84484; 85025; 86403; 87040; 87449; 93005; 96365; 96372; 99285; G0378; J0696; J1650; J7030; Q9967

== ENCOUNTER 2021-05-10 20:50 | Emergency (ER) | payer MEDICARE, MEDICAID, SELFPAY ==
[2021-05-10 21:18] VITALS: BP 122/72; PULSE 59; RESP 16; TEMP 36.5; O2SAT 95; BMI 28.5
[2021-05-10 22:00] VITALS: BP 129/86; PULSE 55; RESP 18; O2SAT 97
--- NOTE | 2021-05-10 22:03 | XRR_ITS ---
PROCEDURE INFORMATION: Exam: XR Chest Exam date and time: 05/10/2021 10:03 PM Age: 80 years old Clinical indication: Shortness of breath; Additional info: SOB cp TECHNIQUE: Imaging protocol: XR of the chest. Views: 1 view. COMPARISON: CR (CHEST, ) 04/09/2021 9:51 PM FINDINGS: Lungs: Lungs are clear bilaterally. Pleural spaces: No pleural effusion. No pneumothorax. Heart/Mediastinum: Stable mild enlargement of the cardiac silhouette. Mediastinal contours are unremarkable. Stable moderate hiatal hernia. Bones/joints: Unremarkable for age. XR/XR chest 1V portable [id number] IMPRESSION: 1. No acute cardiopulmonary process. 2. Stable moderate hiatal hernia. 3. Incidental/nonacute findings are listed in the report.
--- NOTE | 2021-05-10 22:10 | W.ED.CHESTPA ---
HPI - Chest Pain General: Chief Complaint: Chest Pain Stated Complaint: difficulty breathy, chest pain Time Seen by Provider: 05/10/21 21:50 History of Present Illness: HPI narrative: 80-year-old gentleman with a history of heart failure. This is by report. He presents with chest discomfort and shortness of breath over the past few days. He was actually evaluated for abdominal pain at an outside facility ER last night. CT scan was negative except for debris in my bladder . He says that he is more swollen than normal. He has had chest discomfort on and off. He has a history of atrial fibrillation as well. He also has a history of dementia. MD complaint: chest pain and chest discomfort Pertinent past history: other Onset (ago): day(s) Timing of current episode: episodic Prior episodes: Yes Onset: during rest Pain location: substernal Pain radiation: none Severity: moderate Quality: aching and heaviness Relieving factors: nothing Exacerbating factors: exertion and supine Associated symptoms: Reports diaphoresis, dyspnea, fever(s) (Subjective possibly), leg edema and nausea; Deny palpitations or vomiting Treatment prior to arrival: none Review of Systems Const: Reports: fever(s) (Subjective possibly) and diaphoresis Card: Reports: chest pain; Denies: palpitations Resp: Reports: dyspnea GI: Reports: nausea; Denies: vomiting Neuro: Reports: dizziness; Denies: headache(s) PFS ED PFSH: Medical History Anxiety Arthritis Back pain stable. Cataract Dementia GERD (gastroesophageal reflux disease) History of hemorrhoids History of kidney stones Hypercholesteremia Hypertension Surgical History History of back surgery History of cholecystectomy History of knee surgery Family History Father Cancer Pancreatic cancer Social History Smoking and tobacco status: former smoker Alcohol intake: never Housing: House Physical Exam Const: GENERAL APPEARANCE: well developed ORIENTATION/CONSCIOUSNESS: Yes oriented to person, Yes oriented to place and Yes oriented to time HENMT: COMMON NORMALS: normocephalic, external ears normal and Normal external nose present HEAD & SCALP: normocephalic FACE & SINUS: normal facial exam NOSE: Normal external nose present and No nasal discharge present EXTERNAL EAR: Yes external ears normal Eye: COMMON NORMALS: Equal, round and reactive pupils present, EOMs intact bilaterally and conjunctivae normal EYELID: eyelids normal CONJUNCTIVA: Yes conjunctivae normal PUPIL: Yes Equal, round and reactive pupils present Neck/C-Spine: GENERAL: No tracheal deviation Chest: COMMONS NORMALS: normal inspection of the chest CHEST: No tenderness Resp: COMMON NORMALS: clear to auscultation bilaterally EFFORT & INSPECTION: No tachypneic, No respiratory distress, No retractions, No uses accessory muscles and No tracheal deviation AUSCULTATION: clear to auscultation bilaterally, no rhonchi, no wheezes and lung sounds not diminished Cardio: RATE: bradycardic RHYTHM: abnormal rhythm irregularly irregular PERIPHERAL PULSES: radial pulses present GI: INSPECTION: No abdominal distension AUSCULTATION: No Hyperactive bowel sounds present and No Hypoactive bowel sounds present PALPATION: No Guarding due to palpation present (GI) and No Rigid due to palpation PERCUSSION: no dullness to percussion and no tympanic to percussion Neuro: SENSORIUM/ORIENTATION: Yes oriented to person, Yes oriented to place and Yes oriented to time Psych: COMMON NORMALS: mental status grossly normal Skin: COMMON NORMALS: no rashes or lesions noted GENERAL SKIN EXAM: no rashes or lesions noted Course Vital Signs: Vital signs: Vital Signs Temperature 97.7 F 05/10/21 21:18 Pulse Rate 59 L 05/11/21 01:44 Respiratory Rate 20 H 05/11/21 01:44 Blood Pressure 112/72 05/11/21 01:44 Pulse Oximetry 98 05/11/21 01:44 MDM - Chest Pain MDM Narrative: Medical decision making narrative: EKG shows slow atrial fibrillation. Blood pressure 112/72, pulse ox 94 on room air. CBC and BMP are essentially normal. Second troponin did not rise. Second EKG shows a sinus rhythm with PVCs. No definite heart block, as the IL interval is less than 200. His rate is rather slow, in the 50s at times. He is on 240 mg of diltiazem. I discussed decreasing this to half that dose with the patient. I am wondering if increasing his rate just a bit might help alleviate some symptoms. He does not appear to be in heart failure. His chest x-ray is nonacute. He will be allowed home. Lab Data: Labs: Lab Results 05/10/21 05/10/21 05/10/21 Range/Units 22:15 22:15 22:15 WBC 10.9 H (4.0-10.0) 10^3/ uL RBC 4.82 (4.1-5.3) 10^6/u L Hgb 14.2 (11.7-16.6) g/dL Hct 42.7 (42.0-52.0) % MCV 88.6 (80-94) fL MCH 29.5 (28.0-34.0) pg MCHC 33.3 (30.0-36.0) g/dL RDW 13.4 (12.1-15.1) % Plt Count 355 (130-400) 10^3/c mm MPV 8.5 (7.4-10.4) fL Neut % (Auto) 59.7 % Lymph % (Auto) 28.0 % Caldwell % (Auto) 9.9 % Eos % (Auto) 1.6 % Baso % (Auto) 0.6 % Neut # (Auto) 6.49 (1.8-7.7) 10^3/u L Lymph # (Auto) 3.0 (0.8-4.8) 10^3/u L [place] # (Auto) 1.1 H (0.2-0.9) 10^3/u L Eos # (Auto) 0.2 (0.0-0.8) 10^3/u L Baso # (Auto) 0.1 (0.0-0.1) 10^3/u L Nucleated RBC % (a uto) 0 % Nucleated RBCs # 0.0 /100WBC Sodium 135 L (136-145) mmol/L Potassium 5.0 (3.5-5.1) mmol/L Chloride 101 (98-107) mmol/L Carbon Dioxide 22 (22-29) mmol/L Anion Gap 17.0 (5-19) BUN 14 (8-23) mg/dL Creatinine 0.7 (0.7-1.2) mg/dL GFR Calculation Not Reportable Glucose 98 (65-115) mg/dL Calculated Osmolal ity 280 L (285-295) mOsm/k g Calcium 9.6 (8.5-10.5) mg/dL Total Bilirubin 0.2 (0.15-1.2) mg/dL AST 25 (0-40) U/L ALT 31 (0-41) U/L Alkaline Phosphata se 104 (40-130) IU/L Creatine Kinase 92 (39-308) U/L Troponin T Baselin e 14 (0-15) ng/L Troponin T 120 Min [place] (0-15) ng/L Delta Troponin T (0-10) ABS# NT-Pro-B Natriuret Pep 494 H (0-450) pg/mL Total Protein 6.5 L (6.6-8.7) g/dL Albumin 4.3 (3.5-5.2) g/dL Globulin 2.2 (1.3-4.6) g/dL Urine Color (Yellow) Urine Appearance (CLEAR) Urine pH (5-7) Ur Specific Gravit y (1.005-1.030) Urine Protein (Negative) Urine Glucose (UA) (Normal) Urine Ketones (Negative) Urine Blood (Negative) Urine Nitrate (Negative) Urine Bilirubin (Negative) Urine Urobilinogen (Negative) mg/dL Ur Leukocyte Haleigh ase (Negative) 05/10/21 05/11/21 Range/Units 22:40 00:00 WBC (4.0-10.0) 10^3/ uL RBC (4.1-5.3) 10^6/u L Hgb (11.7-16.6) g/dL Hct (42.0-52.0) % MCV (80-94) fL MCH (28.0-34.0) pg MCHC (30.0-36.0) g/dL RDW (12.1-15.1) % Plt Count (130-400) 10^3/c mm MPV (7.4-10.4) fL Neut % (Auto) % Lymph % (Auto) % [place]dwell % (Auto) % Eos % (Auto) % Baso % (Auto) % Neut # (Auto) (1.8-7.7) 10^3/u L Lymph # (Auto) (0.8-4.8) 10^3/u L [place]dwell # (Auto) (0.2-0.9) 10^3/u L Eos # (Auto) (0.0-0.8) 10^3/u L Baso # (Auto) (0.0-0.1) 10^3/u L Nucleated RBC % (a uto) % Nucleated RBCs # /100WBC Sodium (136-145) mmol/L Potassium (3.5-5.1) mmol/L Chloride (98-107) mmol/L Carbon Dioxide (22-29) mmol/L Anion Gap (5-19) BUN (8-23) mg/dL Creatinine (0.7-1.2) mg/dL GFR Calculation Glucose (65-115) mg/dL Calculated Osmolal ity (285-295) mOsm/k g Calcium (8.5-10.5) mg/dL Total Bilirubin (0.15-1.2) mg/dL AST (0-40) U/L ALT (0-41) U/L Alkaline Phosphata se (40-130) IU/L Creatine Kinase (39-308) U/L Troponin T Baselin e (0-15) ng/L Troponin T 120 Min [place] 13.60 (0-15) ng/L Delta Troponin T -0.40 L (0-10) ABS# NT-Pro-B Natriuret Pep (0-450) pg/mL Total Protein (6.6-8.7) g/dL Albumin (3.5-5.2) g/dL Globulin (1.3-4.6) g/dL Urine Color Yellow (Yellow) Urine Appearance Clear (CLEAR) Urine pH 5 (5-7) Ur Specific Gravit y 1.015 (1.005-1.030) Urine Protein Neg (Negative) Urine Glucose (UA) Norm (Normal) Urine Ketones Negative (Negative) Urine Blood Neg (Negative) Urine Nitrate Negative (Negative) Urine Bilirubin Neg (Negative) Urine Urobilinogen Norm (Negative) mg/dL Ur Leukocyte Haleigh ase Negative (Negative) Discharge Plan Discharge Patient Disposition: Home Clinical Impression: Bradycardia Chest pain Qualifiers: Chest pain type: unspecified Qualified Code(s): R07.9 - Chest pain, unspecified Condition: Stable Prescriptions: New diltiazem HCl 120 mg capsule,extended release 24hr 120 mg PO DAILY Qty: 30 RF: 0 Discontinued diltiazem HCl 240 mg capsule,extended release 24hr 240 mg PO DAILY RF: 0 No Action hydrocodone-acetaminophen 10-325 mg tablet 1 tab PO Q6H PRN (Reason: Pain) RF: 0 nitroglycerin 0.4 mg tablet, sublingual 0.4 mg SUBLINGUAL Q5M PRN (Reason: Chest Pain) RF: 0 omeprazole 20 mg capsule,delayed release(DR/EC) 20 mg PO DAILY RF: 0 tolterodine 4 mg capsule,extended release 24hr 4 mg PO DAILY 90 Days Qty: 90 RF: 3 simvastatin 20 mg tablet 20 mg PO DAILY Qty: 90 RF: 1 lisinopril 20 mg tablet 20 mg PO DAILY MDD . Qty: 90 RF: 1 donepezil 10 mg tablet 10 mg PO DAILY 30 Days Qty: 90 RF: 1 Discharge Orders: Discharge ED (Routine); Ordered 05/11/21 Ordered By: Anselmo Valdovinos Referrals: MISBAH ASHER MD [Primary Care Provider] - 1-3 days Discharge Diet: Advance as tolerated Discharge Activity: Increase activity as tolerated Patient Instructions: Chest Pain (ED), Bradycardia (ED) Activity Restrictions/Additional Instructions: Return for worsening chest discomfort or shortness of breath despite treatment. Return for development of fever, cough, other concerning symptoms. For now, stop your 240 mg diltiazem pill for your heart rate, and start the 120 mg diltiazem pill. Your heart rate has been quite low here, which could be affecting your symptoms. Coding Level of Care Code ED Supervisor Delivery Department for Gurwinder[employer] Fwd Exam Comprehensive
[2021-05-10 22:36] LABS: Basophils # 0.1 10^3/uL (0.0-0.1); Basophils % 0.6 %; Eosinophils # 0.2 10^3/uL (0.0-0.8); Eosinophils % 1.6 %; Hematocrit 42.7 % (42.0-52.0); Hemoglobin 14.2 g/dL (11.7-16.6); Mean Corpuscular HGB Conc 33.3 g/dL (30.0-36.0); Mean Corpuscular Hemoglobin 29.5 pg (28.0-34.0); Mean Corpuscular Volume 88.6 fL (80-94); Mean Platelet Volume 8.5 fL (7.4-10.4); Monocytes # 1.1 10^3/uL (0.2-0.9); Monocytes % 9.9 %; Neutrophils # 6.49 10^3/uL (1.8-7.7); Neutrophils % 59.7 %; Nucleated Red Blood Cells % 0 %; Platelet Count 355 10^3/cmm (130-400); Red Blood Count 4.82 10^6/uL (4.1-5.3); Red Cell Distribution Width 13.4 % (12.1-15.1); White Blood Count 10.9 10^3/uL (4.0-10.0)
[2021-05-10 22:45] LABS: Add Urine Microscopic? NO; Charge for UA Resulting for Rev
[2021-05-10 22:51] LABS: Bilirubin Urine Neg (Negative); Blood Urine Neg (Negative); Glucose Urine UA Norm (Normal); Ketones Urine Negative (Negative); Leukocyte Esterase Urine Negative (Negative); Nitrate Urine Negative (Negative); Protein Urine Neg (Negative); Specific Gravity, Urine 1.015 (1.005-1.030); Urine Appearance Clear (CLEAR); Urine Color Yellow (Yellow); Urobilinogen Urine Norm (Negative); pH Urine 5 (5-7)
[2021-05-10 22:58] LABS: Troponin(5th) Baseline 14 ng/L (0-15)
[2021-05-10 23:00] VITALS: BP 108/58; PULSE 54; RESP 23; O2SAT 96
[2021-05-10 23:05] LABS: Alanine Aminotransferase 31 U/L (0-41); Albumin Level 4.3 g/dL (3.5-5.2); Alkaline Phosphatase 104 IU/L (40-130); Blood Urea Nitrogen 14 mg/dL (8-23); Calcium 9.6 mg/dL (8.5-10.5); Carbon Dioxide 22 mmol/L (22-29); Chloride 101 mmol/L (98-107); Creatine Phosphokinase 92 U/L (39-308); Globulin 2.2 g/dL (1.3-4.6); Glucose 98 mg/dL (65-115); NT Pro B Type Natriuretic Pept 494 pg/mL (0-450); Osmolality Calculated 280 mOsm/kg (285-295); Sodium 135 mmol/L (136-145); Total Bilirubin 0.2 mg/dL (0.15-1.2); Total Protein 6.5 g/dL (6.6-8.7)
[2021-05-10 23:06] LABS: Aspartate Amino Transferase 25 U/L (0-40)
[2021-05-11] VITALS: BP 119/62; PULSE 52; RESP 17; O2SAT 93
--- NOTE | 2021-05-11 00:03 | ECG_ITS ---
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1940 Requested By: Anselmo Bynum Order Number: [id number] Reading MD: JULITO HARRIS Measurements Intervals [place] Rate: 60 P: -21 DE: 197 QRS: -48 QRSD: 106 T: 47 QT: 429 QTc: 429 Interpretive Statements SINUS RHYTHM WITH OCCASIONAL ECTOPIC PREMATURE COMPLEXES PATTERN CONSISTENT WITH PULMONARY DISEASE LEFT ANTERIOR FASCICULAR BLOCK [QRS AXIS <= -45, QR IN I, RS IN II] Compared to ECG 04/10/2021 17:27:39 Left anterior fascicular block now present Left-axis deviation no longer present Intraventricular conduction delay no longer present Electronically Signed On 05-11-2021 18:53:07 CDT by JULITO HARRIS [id number]
[2021-05-11 01:00] VITALS: BP 107/62; PULSE 56; RESP 23; O2SAT 97
[2021-05-11 01:44] VITALS: BP 112/72; PULSE 59; RESP 20; O2SAT 98
== END 2021-05-11 01:30 | disposition home or self-care (01) ==
PROVIDERS: Emergency Provider Emergency Medicine; PCP Internal Medicine
DX: R07.9 Chest pain, unspecified (principal); R00.1 Bradycardia, unspecified; F03.90 Unspecified dementia, unspecified severity, without behavioral disturbance, psychotic disturbance, mood disturbance, and anxiety; I10 Essential (primary) hypertension; Z87.891 Personal history of nicotine dependence
CPT/HCPCS: 36415; 71045; 80053; 81003; 82550; 83880; 84484; 85025; 93005; 99283